=== PATIENT | female | born 1985 | race Caucasian/White ===

== ENCOUNTER 2021-07-17 05:19 | Inpatient (IN) ==
[2021-07-17] MEDS ORDERED: Naloxone 0.4 MG/ML INJ IVP PRN (05:29)
[2021-07-17] MEDS ORDERED: Metoclopramide 10 MG/2 ML VIAL IVP PRN (05:29)
[2021-07-17] MEDS ORDERED: Famotidine 20 MG/2 ML VIAL IVP PRN (05:29)
[2021-07-17] MEDS ORDERED: *HR* Nalbuphine 10 MG/ML AMPUL IV PRN (05:29)
[2021-07-17] MEDS ORDERED: Ringers Solution, Lactated 1,000 ML IVC SCH (05:30)
[2021-07-17] MEDS ORDERED: Ondansetron 4 MG/2 ML VIAL IVP PRN ×2 (06:00→09:53)
[2021-07-17 06:15] LABS: Basophils % 0.2 %; Eosinophils % 0.4 %; Hematocrit 37.8 % (35.3-44.9); Hemoglobin 12.8 g/dL (11.5-15.4); Immature Granulocytes % 0.6 % (0-4); Lymphocytes # 1.4 K/mcL (0.6-4.6); Lymphocytes % 16.6 %; Mean Corpuscular HGB Conc 33.9 g/dL (31.6-35.5); Mean Corpuscular Hemoglobin 33.8 pg (28.0-33.3); Mean Corpuscular Volume 99.7 fL (83.0-100.0); Monocytes # 0.8 K/mcL (0.0-1.3); Platelet Count 278 K/mcL (140-400); Red Blood Count 3.79 M/mcL (3.82-4.97); Red Cell Distribution Width 13.5 % (11.5-14.5); Segmented Neutrophils % 72.2 %; White Blood Count 8.3 K/mcL (4.3-11.1)
[2021-07-17] MEDS ORDERED: *HR* FentaNYL (PF) 100 MCG/2 ML VIAL EP ONE (06:49)
[2021-07-17] MEDS ORDERED: EPHEDrine 50 MG/ML VIAL IVP PRN (06:49)
[2021-07-17] MEDS ORDERED: Ropivacaine/PF 0.2% 20 ML VIAL EP ONE (06:49)
[2021-07-17 06:50] LABS: Influenza A PCR Negative (Negative); Influenza B PCR Negative (Negative); Resp. Syncytial Virus PCR Negative (Negative)
[2021-07-17 06:51] LABS: SARS-CoV-2 by PCR (In House) Negative (Negative)
[2021-07-17] MEDS ORDERED: Epidural Premix (fent/bupiv) 110 ML EP SCH (07:00)
[2021-07-17] MEDS ORDERED: *HR* FentaNYL (PF) 100 MCG/2 ML VIAL ONE (07:13)
[2021-07-17] MEDS ORDERED: Ropivacaine/PF 0.2% 20 ML VIAL ONE (07:13)
[2021-07-17 08:32] LABS: Amphetamine Screen,Urine Negative ng/mL (Cutoff=1000); Barbiturate Screen,Urine Negative ng/mL (Cutoff=200); Benzodiazepines Screen,Urine Negative ng/mL (Cutoff=200); Cannabinoid Screen,Urine Positive ng/mL (Cutoff = 50); Cocaine Screen,Urine Negative ng/mL (Cutoff= 300); Opiate Screen,Urine Negative ng/mL (Cutoff=300); Phencyclidine Screen,Urine Negative ng/mL (Cutoff=25)
[2021-07-17] MEDS ORDERED: Oxytocin 30 UNIT/503 ML BAG IVC ONE (08:59)
[2021-07-17] MEDS ORDERED: Chloroprocaine 3%/PF 20 ML VIAL INFILT ONE ×2 (09:04→09:24)
[2021-07-17] MEDS ORDERED: Lidocaine/EPI 1:200k 2% PF 20 ML VIAL ONE ×2 (09:05→09:24)
[2021-07-17] MEDS ORDERED: EPHEDrine 50 MG/ML VIAL ONE (09:09)
[2021-07-17] MEDS ORDERED: Ondansetron 4 MG/2 ML VIAL ONE (09:20)
[2021-07-17] MEDS ORDERED: Acetaminophen IV 1,000 MG/100 ML BAG IVPB ONE (09:27)
[2021-07-17] MEDS ORDERED: Ketorolac 30 MG/ML VIAL ONE (09:27)
[2021-07-17] MEDS ORDERED: Ringers Solution, Lactated 1,000 ML ONE (09:34)
[2021-07-17] MEDS ORDERED: *HR* Morphine Sulfate/PF 10 MG/10 ML AMPUL ONE (09:35)
[2021-07-17] MEDS ORDERED: Simethicone 80 MG TAB.CHEW PO PRN (09:53)
[2021-07-17] MEDS ORDERED: Rho Immune Globulin 1,500 UNIT SYRINGE IM ONE (09:53)
[2021-07-17] MEDS ORDERED: Oxytocin 30 UNIT/503 ML BAG IVC SCH (10:00)
[2021-07-17] MEDS ORDERED: *HR* FentaNYL (PF) 100 MCG/2 ML VIAL IVP PRN (10:15)
[2021-07-17] MEDS ORDERED: *HR* OxyCODONE Immed Rel 5 MG TABLET PO PRN (10:15)
[2021-07-17] MEDS: Ibuprofen 600 MG TABLET PO SCH ×2 (13:15→19:25)
[2021-07-17] MEDS: Acetaminophen 325 MG TABLET PO SCH ×2 (13:15→19:26)
[2021-07-17] MEDS: *HR* OxyCODONE Immed Rel 5 MG TABLET PO PRN ×2 (13:53→20:36)
[2021-07-17] MEDS: metroNIDAZOLE 500 MG TABLET PO SCH ×2 (13:53→20:36)
[2021-07-17] MEDS: cephALEXin 500 MG CAPSULE PO SCH ×2 (13:53→20:37)
[2021-07-18] MEDS: Acetaminophen 325 MG TABLET PO SCH ×4 (02:17→21:52)
[2021-07-18] MEDS: Ibuprofen 600 MG TABLET PO SCH ×4 (02:17→21:53)
[2021-07-18] MEDS: *HR* OxyCODONE Immed Rel 5 MG TABLET PO PRN ×4 (04:32→23:40)
[2021-07-18 04:48] LABS: Basophils % 0.2 %; Eosinophils % 0.2 %; Hematocrit 27.6 % (35.3-44.9); Immature Granulocytes % 0.5 % (0-4); Mean Corpuscular Hemoglobin 33.6 pg (28.0-33.3); Mean Corpuscular Volume 101.8 fL (83.0-100.0); Monocytes # 0.8 K/mcL (0.0-1.3); Monocytes % 9.5 %; Neutrophils # 6.8 K/mcL (1.6-8.9); Platelet Count 224 K/mcL (140-400); Red Blood Count 2.71 M/mcL (3.82-4.97); Red Cell Distribution Width 13.6 % (11.5-14.5); Segmented Neutrophils % 78.6 %; White Blood Count 8.7 K/mcL (4.3-11.1)
[2021-07-18 04:50] LABS: Hemoglobin 9.1 g/dL (11.5-15.4)
[2021-07-18] MEDS: Prenatal Vit/FA 1 EACH TABLET PO SCH (08:50)
[2021-07-18] MEDS: metroNIDAZOLE 500 MG TABLET PO SCH ×3 (08:50→20:24)
[2021-07-18] MEDS: cephALEXin 500 MG CAPSULE PO SCH ×3 (08:50→20:24)
[2021-07-18] MEDS ORDERED: Lanolin 7 G OINT...G. TP PRN (21:45)
[2021-07-19] MEDS: Acetaminophen 325 MG TABLET PO SCH (04:07)
[2021-07-19] MEDS: Ibuprofen 600 MG TABLET PO SCH ×2 (04:07→08:31)
[2021-07-19 07:06] VITALS: BP 114/70; PULSE 75; TEMP 98; O2SAT 98
[2021-07-19] MEDS: cephALEXin 500 MG CAPSULE PO SCH (08:30)
[2021-07-19] MEDS: Prenatal Vit/FA 1 EACH TABLET PO SCH (08:31)
[2021-07-19] MEDS: metroNIDAZOLE 500 MG TABLET PO SCH (08:31)
== END 2021-07-19 11:58 | disposition home or self-care (01) | DRG 539 ==
LOC: 1NENULAB → OBSVTOIN 05:19 → 1NENUOBS 12:17
PROVIDERS: ADMIT Student in an Organized Health Care Education/Training Program; ATTEND Student in an Organized Health Care Education/Training Program